=== PATIENT | male | born 1955 | race Caucasian/White ===

== ENCOUNTER 2017-04-13 19:18 | Observation (INO) ==
[2017-04-13 20:25] LABS: Basophils % 0.4 %; Eosinophils # 0.1 K/mcL (0.0-0.6); Eosinophils % 2.7 %; Hematocrit 44.4 % (37.5-50.1); Hemoglobin 13.9 g/dL (12.9-16.9); Immature Granulocytes % 0.4 % (0-4); Lymphocytes # 1.3 K/mcL (0.6-4.6); Lymphocytes % 23.9 %; Mean Corpuscular HGB Conc 31.3 g/dL (31.6-35.5); Mean Corpuscular Hemoglobin 26.8 pg (28.0-33.3); Mean Corpuscular Volume 85.5 fL (83.0-100.0); Monocytes # 0.6 K/mcL (0.0-1.3); Monocytes % 10.6 %; Neutrophils # 3.3 K/mcL (1.6-8.9); Platelet Count 210 K/mcL (140-400); Red Blood Count 5.19 M/mcL (4.19-5.50); Red Cell Distribution Width 13.6 % (11.5-14.5)
[2017-04-13] MEDS ORDERED: Ibuprofen 800 MG TABLET PO ONE (20:32)
[2017-04-13] MEDS ORDERED: Ipratropium/Albuterol Neb 3 ML IH ONE (20:44)
[2017-04-13 20:46] LABS: BUN/Creatinine Ratio 23 (6-26); Blood Urea Nitrogen 22 mg/dL (8-23); Calcium 8.7 mg/dL (8.6-10.3); Carbon Dioxide 27 mEq/L (23-29); Chloride 104 mEq/L (98-107); Glucose 98 mg/dL (70-105); Osmolality,Calculated 285 (280-300); Potassium 4.6 mEq/L (3.5-5.1); Sodium 136 mEq/L (136-145); eGFR For African Americans > 60 (> 60); eGFR For Non-African Americans > 60 (> 60)
[2017-04-13 20:52] LABS: Platelet Estimate Normal (Normal)
[2017-04-13] MEDS ORDERED: methylPREDNISolone 125 MG/2 ML VIAL IVP ONE (20:52)
--- NOTE | 2017-04-13 20:58 | Emergency Department Note ---
Disposition Clinical Impression: Hypoxia, COPD exacerbation, Pulmonary nodule Disposition: Admitted As Inpatient Condition: Good Time of Disposition: 22:36 SOB HPI - General Chief Complaint: ED Shortness of Breath/Dyspnea Stated Complaint: JOVANNI/ cough Time Seen by Provider: 04/13/17 19:22 Source: patient Mode of arrival: ambulatory Limitations: no limitations Nursing Notes Reviewed: Yes Vital Signs Reviewed: Yes - History of Present Illness Patient is a 62-year-old male with past medical history of smoking history. No official diagnosis of COPD. He presents today due to shortness of breath and cough over the past month. He states that his cough has not gotten any worse but has not gotten any better. He feels short of breath when he is up walking around. He does not currently take any daily inhalers. Has never been officially diagnosed with COPD. Does not wear any oxygen at home. He was seen in urgent care and prescribed steroids which he said did not help. He has also tried Tessalon Perles without any relief. Denies any other nausea, vomiting, fevers, diarrhea, abdominal pain. - Related Data Allergies Allergy/AdvReac Type Severity Reaction Status Date / Time latex Allergy Rash Verified 04/13/17 19:22 All systems ED: reviewed and negative except as stated. Constitutional: Denies: fever Cardiovascular: Denies: chest pain Respiratory: Reports: cough, dyspnea Gastrointestinal: Denies: abdominal pain, nausea, vomiting, diarrhea Genitourinary: Denies: urgency, dysuria, frequency, hematuria Past Medical History - Past Medical History Attestation: Yes The following information was validated with the patient. Source: patient Medical history: Reports: no medical history Surgical history: Reports: other Psychiatric history: Reports: no psych history - Social History Smoking Status: Never smoker Smokeless Tobacco Status: No Alcohol use: Reports: none Drug use: Reports: none Physical Exam - General General appearance: alert, in no apparent distress - Head Head exam: atraumatic, normocephalic, normal inspection - Eye Eye exam: Present: normal appearance, PERRL, EOMI - ENT ENT exam: normal exam, normal oropharynx, mucous membranes moist - Neck Neck exam: Present: normal inspection, full ROM, trachea midline - Chest Chest inspection: Present: normal inspection, symmetric chest wall rise - Respiratory Respiratory exam: Present: wheezes (Wheezing and decreased aeration of bilateral lower lobes). Absent: stridor, accessory muscle use, prolonged expiratory phase - Cardiovascular Cardiovascular exam: Present: regular rate, normal rhythm, normal heart sounds - Abdominal Exam Abdominal exam: Present: soft, Non-Tender. Absent: tenderness, distention, guarding, rebound, rigidity - Extremities Exam Extremities exam: Present: normal inspection, full ROM. Absent: tenderness, pedal edema - Neurological Exam Neurological exam: Present: alert, oriented X3 - Psychiatric Psychiatric exam: Present: normal affect, normal mood - Skin Skin exam: Present: warm, dry, intact, normal color Course Course Narrative: Patient mildly hypertensive, oxygen 93% on room air. Otherwise, the rest of the vitals were within normal limits. Physical exam shows wheezing of bilateral lower lobes along with decreased aeration throughout. Abdomen soft and nontender, heart regular rate and rhythm. Chest x-ray shows question of COPD and possible mild bronchitis. CBC, BMP, troponin all within normal limits. EKG showed normal sinus rhythm with no acute ST changes. Due to hypoxia, persistent cough, there is concern for PE. Will perform CTA to assess for PE. 22:34 chest x-ray shows questionable COPD. CTA of the chest shows no PE, there is moderate centrilobular emphysema and a 4 mm nodule in the left upper lobe. This was discussed with the patient and he is aware that he will need follow-up CT imaging. Patient has been dropping down to 88-89% on room air while at rest. I do not feel comfortable with sending the patient home at this time. Likely COPD exacerbation. Patient has been given Solu-Medrol and [address] will place patient on oxygen and admit for further care. Chest X-Ray 04/13/17 19:22 IMPRESSION: Question of COPD. Mildly increased lung markings, may be related to mild bronchitis D/ / Jordon Vazquez MD / Jordon Vazquez MD Interpreting Provider: Jordon Vazquez MD Chest CTA 04/13/17 20:36 IMPRESSION: No evidence of pulmonary embolism or acute pulmonary abnormality. Moderate centrilobular emphysema. 4 mm nodule within the medial aspect of the left upper lobe. RECOMMENDATIONS: Fleischner Society guidelines for follow-up and management of incidentally detected pulmonary nodules: Single Solid Nodule: Nodule size less than 6 mm In a low-risk patient, no routine follow-up. In a high-risk patient, optional CT at 12 months. Nodule size equals 6-8 mm In a low-risk patient, CT at 6-12 months, then consider CT at 18-24 months. In a high-risk patient, CT at 6-12 months, then CT at 18-24 months. Nodule size greater than 8 mm In a low-risk patient, consider CT, PET/CT, or tissue sampling at 3 months. In a high-risk patient, consider CT, PET/CT, or tissue sampling at 3 months. Multiple Solid Nodules: Nodule size less than 6 mm In a low-risk patient, no routine follow-up. In a high-risk patient, optional CT at 12 months. Nodule size equals 6-8 mm In a low-risk patient, CT at 3-6 months, then consider CT at 18-24 months. In a high-risk patient, CT at 3-6 months, then CT at 18-24 months. Nodule size greater than 8 mm In a low-risk patient, CT at 3-6 months, then consider CT at 18-24 months. In a high-risk patient, CT at 3-6 months, then CT at 18-24 months. - Low risk patients include individuals with minimal or absent history of smoking and other known risk factors. - High risk patients include individuals with a history or smoking or known risk factors. Radiology 2017 http://pubs.rsna.org/doi/full/10.1148/radiol.[email or web address] D/ / Rashi Narayan MD / Rashi Narayan MD Interpreting Provider: Rashi Narayan MD Chest X-Ray 04/13/17 19:22 IMPRESSION: Question of COPD. Mildly increased lung markings, may be related to mild bronchitis D/ / Jordon Vazquez MD / Jordon Vazquez MD Interpreting Provider: Jordon Vazquez MD Vital Signs Temperature 97.4 F L 04/13/17 19:19 Pulse Rate 94 04/13/17 19:19 Respiratory Rate 16 04/13/17 19:19 Blood Pressure 142/88 04/13/17 19:19 O2 Sat by Pulse Oximetry 96 04/13/17 19:19 Temperature 97.5 F L 04/14/17 04:23 Pulse Rate 100 04/14/17 04:23 Respiratory Rate 16 04/14/17 04:23 Blood Pressure 123/73 04/14/17 04:23 O2 Sat by Pulse Oximetry 92 04/14/17 04:23 Oxygen Delivery Oxygen Delivery Room Air Shortness of Breath/Dyspnea - MDM Narrative Medical decision making narrative: Patient mildly hypertensive, oxygen 93% on room air. Otherwise, the rest of the vitals were within normal limits. Physical exam shows wheezing of bilateral lower lobes along with decreased aeration throughout. Abdomen soft and nontender, heart regular rate and rhythm. Chest x-ray shows question of COPD and possible mild bronchitis. CBC, BMP, troponin all within normal limits. EKG showed normal sinus rhythm with no acute ST changes. Due to hypoxia, persistent cough, there is concern for PE. Will perform CTA to assess for PE. 22:34 chest x-ray shows questionable COPD. CTA of the chest shows no PE, there is moderate centrilobular emphysema and a 4 mm nodule in the left upper lobe. This was discussed with the patient and he is aware that he will need follow-up CT imaging. Patient has been dropping down to 88-89% on room air while at rest. I do not feel comfortable with sending the patient home at this time. Likely COPD exacerbation. Patient has been given Solu-Medrol and [address] will place patient on oxygen and admit for further care. WIll give levaquin IV. - Medical Records Medical records reviewed: Yes I reviewed the patient's medical records. - Lab Data Lab results reviewed: Yes I reviewed the patient's lab results. Result diagrams: 04/13/17 20:11 04/13/17 20:11 Lab Results 04/13/17 04/13/17 04/13/17 Range/Units 20:11 20:11 20:11 WBC 5.3 (4.3-11.1) K/mcL RBC 5.19 (4.19-5.50) M/mcL Hgb 13.9 (12.9-16.9) g/dL Hct 44.4 (37.5-50.1) % MCV 85.5 (83.0-100.0) fL MCH 26.8 L (28.0-33.3) pg MCHC 31.3 L (31.6-35.5) g/dL RDW 13.6 (11.5-14.5) % Plt Count 210 (140-400) K/mcL MPV 9.0 L (9.4-12.4) fL Immature Gran % 0.4 (0-4) % Seg Neutrophils % 62.0 % Lymphocytes % 23.9 % Monocytes % 10.6 % Eosinophils % 2.7 % Basophils % 0.4 % Neutrophils # 3.3 (1.6-8.9) K/mcL Lymphocytes # 1.3 (0.6-4.6) K/mcL Monocytes # 0.6 (0.0-1.3) K/mcL Eosinophils # 0.1 (0.0-0.6) K/mcL Basophils # 0.0 (0.0-0.2) K/mcL Platelet Estimate Normal (Normal) Sodium 136 (136-145) mEq/L Potassium 4.6 (3.5-5.1) mEq/L Chloride 104 (98-107) mEq/L Carbon Dioxide 27 (23-29) mEq/L BUN 22 (8-23) mg/dL Creatinine 0.96 (0.70-1.30) mg/dL Est GFR ( Amer) > 60 (> 60) Est GFR (Non-Af Amer) > 60 (> 60) BUN/Creatinine Ratio 23 (6-26) Glucose 98 (70-105) mg/dL Calculated Osmolality 285 (280-300) Lactic Acid 0.8 (0.5-2.2) mmol/L Calcium 8.7 (8.6-10.3) mg/dL Troponin I (< 0.04) ng/mL B-Natriuretic Peptide (Less than 100) pg/mL 04/13/17 04/13/17 Range/Units 20:11 20:11 WBC (4.3-11.1) K/mcL RBC (4.19-5.50) M/mcL Hgb (12.9-16.9) g/dL Hct (37.5-50.1) % MCV (83.0-100.0) fL MCH (28.0-33.3) pg MCHC (31.6-35.5) g/dL RDW (11.5-14.5) % Plt Count (140-400) K/mcL MPV (9.4-12.4) fL Immature Gran % (0-4) % Seg Neutrophils % % Lymphocytes % % Monocytes % % Eosinophils % % Basophils % % Neutrophils # (1.6-8.9) K/mcL Lymphocytes # (0.6-4.6) K/mcL Monocytes # (0.0-1.3) K/mcL Eosinophils # (0.0-0.6) K/mcL Basophils # (0.0-0.2) K/mcL Platelet Estimate (Normal) Sodium (136-145) mEq/L Potassium (3.5-5.1) mEq/L Chloride (98-107) mEq/L Carbon Dioxide (23-29) mEq/L BUN (8-23) mg/dL Creatinine (0.70-1.30) mg/dL Est GFR ( Amer) (> 60) Est GFR (Non-Af Amer) (> 60) BUN/Creatinine Ratio (6-26) Glucose (70-105) mg/dL Calculated Osmolality (280-300) Lactic Acid (0.5-2.2) mmol/L Calcium (8.6-10.3) mg/dL Troponin I < 0.03 (< 0.04) ng/mL B-Natriuretic Peptide 13 (Less than 100) pg/mL - Radiology Data Radiology results reviewed: Yes I reviewed the patient's radiology results. - EKG Data EKG attestation: Yes I reviewed and interpreted this EKG. EKG results narrative: 04/13/2017 and 19:25. Normal sinus rhythm. Rate 91. [place] 150. QRS 93. QTC 383. No acute ST elevation or depression. Normal axis. S.B.A.R. - S.B.A.R. Situation: Demographics, MOA Background: Presenting Complaint, Relevant PMH, Meds, & Allergies Assessment: Vital Signs, Course and respsone to treatment, Exam Concerns, Patient/Family Expectation, Pertinant Lab Results, Outstanding Labs Recommendation: Barrier(s) to disposition, Recommendation based on pending studies, treatments, or consults S.B.A.R. Report Given to: Dr. Vickie Rothman Repor Time: 22:36 Attestation Statement - Attestation Attestation: I examined this patient and my medical decision-making was reviewed with the Resident Physician. I agree with the documented findings, disposition and treatment plan as described except to the extent set forth below. Findings consistent with cough. Suspect bronchitis, CT pulmonary embolism study shows no acute findings.
[2017-04-13] MEDS ORDERED: *HR* Promethazine 25 MG/ML VIAL IVP PRN (22:33)
[2017-04-13] MEDS ORDERED: Ondansetron 4 MG/2 ML VIAL IVP PRN (22:33)
[2017-04-13] MEDS ORDERED: *HR* HYDROcodone/Acet 5/325 mg TABLET PO PRN (22:33)
[2017-04-13] MEDS ORDERED: Naloxone 0.4 MG/ML INJ IVP PRN (22:33)
[2017-04-13] MEDS ORDERED: Levofloxacin 750 MG/150 ML 750 MG/150 ML BAG IVPB ONE (22:37)
[2017-04-13] MEDS: Ipratropium/Albuterol Neb 3 ML IH SCH (23:35)
--- NOTE | 2017-04-13 23:53 | Internal Med History&Physical ---
Date of Encounter: 04/13/17 Time of Encounter: 23:30 Assessment and Plan (1) COPD exacerbation Current visit: Yes Status: Acute Admit the pt into Med Surg Triggered by occupational chemical exposure + Bronchitis Started him on high dose IV steroids Cont JESSICA Duoneb + O2 cont INH steroids too On Empirical abx Levaquin check Resp viral panel Reviewed CXR - No infiltrates..emphesmatous changes noticed Recommend to f/u with Pulm Also counseled to change the occupation (2) Acute bronchitis Current visit: Yes Status: Acute mostly viral however due to chronicity and severity of symptoms started him on Levaquin abx Qualifiers: Qualified Code(s): J20.9 - Acute bronchitis, unspecified (3) Pulmonary nodule, left Current visit: Yes Status: Acute 4mm Left upper lobe nodule need out pt f/u pt does aware of it (4) Hypoxia Current visit: Yes Status: Acute due to COPD exacerbation Acute resp distress need home O2 eval, Internal Medicine - H&P: HPI Chief complaint: Shortness of breath Admitted From: Emergency Dept Plans for Post Hospital Care: Home History of present illness: Mr. 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 cough with yellowish expectoration. Pt stated he has been having SOB from one month, especially form last 2 weeks it is getting worse. He happened to seen at an [facility] and PCP, who put him on ABx and Symbicort. However his symptoms have not improved. After coming to the ER pt was severely dyspneic , Spo2 88% on RA. After receiving IV steroids + Duoneb now he is feeling better. Denied any PND / Orthopena / Pedal edema Past Med Surg Social Fam HX - Past Medical History Medical history: no medical history Psychiatric history: no psych history - Past Surgical History Surgical History: other - Social History Smoking Status: Never smoker Smokeless Tobacco Status: No Alcohol use: none Drug use: none - Family History Mother Living Status: Still Living Hx Family Cardiac Disorders: Yes (HTN) Hx Family Cancer: Yes (skin cancer) Hx Family Genitourinary Disorders: Yes Father Living Status: Age at : 87 Cause of : PN Hx Family Cardiac Disorders: Yes (open heart surgery, stents) Hx Family Respiratory Disorders: Yes (PN) Hx Family Endocrine Disorder: Yes (DM2) Internal Medicine - H&P: Meds 3 Allergy/AdvReac Type Severity Reaction Status Date / Time latex Allergy Rash Verified 04/13/17 19:22 All Systems PM: A 10-system review of systems was performed and is negative for pertinent findings except as documented above in the HPI. Review of systems: Reviewed all the systems, everything is benign except the systems and symptoms I mentioned in HPI - Constitutional Vitals: Temp Pulse Resp BP Pulse Ox 97.5 F L 93 17 124/74 90 04/13/17 23:23 04/13/17 23:23 04/13/17 23:23 04/13/17 23:23 04/13/17 23:23 General appearance: Present: mild distress, A&O X 3, answers questions appropriately - Head Head exam: Present: atraumatic, normal inspection - Neck Neck exam general surgery: Present: supple - Respiratory Respiratory exam: Present: decreased breath sounds, respiratory distress (mild) , wheezes (diffuse , severe). Absent: rales, rhonchi - Cardiovascular Cardiovascular exam: Present: RRR, +S1, +S2. Absent: systolic murmur, tachycardia - GI/Abdominal GI/Abdominal exam: Present: normal bowel sounds, soft. Absent: rebound, rigid, tenderness - Extremities Exam Extremities exam: Absent: calf tenderness, pedal edema, tenderness - Back Exam Back exam: Absent: CVA tenderness (L), CVA tenderness (R) - Neurological Exam Neurological exam: Present: alert, oriented X3 - Psychiatric Psychiatric exam: Present: normal affect, normal mood - Skin Skin exam: Absent: rash Internal Med - H&P Results - Labs CBC & Chem 7: 04/13/17 20:11 04/13/17 20:11
[2017-04-14 01:21] LABS: Adenovirus Not Detected (Not Detect); Bordetella Pertussis Not Detected (Not Detect); Chlamydophila pneumoniae Not Detected (Not Detect); Coronavirus 229E Not Detected (Not Detect); Coronavirus HKU1 Not Detected (Not Detect); Coronavirus NL63 Not Detected (Not Detect); Coronavirus OC43 Not Detected (Not Detect); Human Metapneumovirus Not Detected (Not Detect); Human Rhinovirus/Enterovirus Not Detected (Not Detect); Influenza A Subtype 2009 H1 Not Detected (Not Detect); Influenza A Untypeable Not Detected (Not Detect); Influenza B ***DETECTED*** (Not Detect); Mycoplasma pneumoniae Not Detected (Not Detect); Parainfluenza Virus 1 Not Detected (Not Detect); Parainfluenza Virus 2 Not Detected (Not Detect); Parainfluenza Virus 3 Not Detected (Not Detect); Parainfluenza Virus 4 Not Detected (Not Detect); Respiratory Syncytial Virus Not Detected (Not Detect)
[2017-04-14] MEDS ORDERED: MethylPREDNISolone 40 MG/ML VIAL IVP SCH (03:00)
[2017-04-14] MEDS ORDERED: Ibuprofen 600 MG TABLET PO ONE (03:46)
[2017-04-14] MEDS: Ipratropium/Albuterol Neb 3 ML IH SCH ×5 (03:51→20:36)
[2017-04-14 06:33] LABS: Basophils % 0.3 %; Hematocrit 39.9 % (37.5-50.1); Hemoglobin 12.8 g/dL (12.9-16.9); Immature Granulocytes % 0.3 % (0-4); Lymphocytes # 0.3 K/mcL (0.6-4.6); Lymphocytes % 8.7 %; Mean Corpuscular HGB Conc 32.1 g/dL (31.6-35.5); Mean Corpuscular Hemoglobin 26.9 pg (28.0-33.3); Mean Platelet Volume 8.7 fL (9.4-12.4); Monocytes # 0.1 K/mcL (0.0-1.3); Monocytes % 2.2 %; Neutrophils # 3.2 K/mcL (1.6-8.9); Platelet Count 190 K/mcL (140-400); Red Blood Count 4.75 M/mcL (4.19-5.50); Red Cell Distribution Width 13.6 % (11.5-14.5); Segmented Neutrophils % 88.5 %
[2017-04-14] MEDS: *HR* Enoxaparin 40 MG/0.4 ML SYRINGE SQ SCH (06:41)
[2017-04-14 08:16] LABS: Platelet Estimate Normal (Normal); Toxic Granulation Present (Not Present)
[2017-04-14] MEDS: MethylPREDNISolone 40 MG/ML VIAL IVP SCH ×2 (08:19→20:43)
[2017-04-14] MEDS ORDERED: Nicotine 21 MG PATCH.TD24 TD SCH (09:00)
--- NOTE | 2017-04-14 12:35 | Internal Med Progress Note ---
Date of Encounter: 04/14/17 Time of Encounter: 12:33 - Assessment and plan (1) Hypoxia Current Visit: Yes Status: Acute Assessment and plan: secondary to COPD exacerbation and influenza continue systemic steroids (Methyprednisolone 40mg IV q12h), bronchodilator support, IV abx, antivirals O2 supplementation as needed will closely monitor respiratory status (2) COPD exacerbation Current Visit: Yes Status: Acute Assessment and plan: as listed above (3) Influenza Current Visit: Yes Status: Acute Assessment and plan: as listed above (4) Acute bronchitis Current Visit: Yes Status: Acute Assessment and plan: as listed above guaifenesin as needed for cough Qualifiers: Qualified Code(s): J20.9 - Acute bronchitis, unspecified (5) Pulmonary nodule, left Current Visit: Yes Status: Acute Assessment and plan: pt aware outpatient follow up with pulmonary (6) DVT prophylaxis Current Visit: Yes Status: Acute Assessment and plan: Heparin SQ - Subjective Interval history: Patient seen and examined at bedside. Resting in bed and reports of feeling better compared to previous day. Currently saturating well on room air - Constitutional Vitals: Temp Pulse Resp BP Pulse Ox 97.7 F 103 14 131/82 93 04/14/17 12:06 04/14/17 12:06 04/14/17 12:06 04/14/17 12:06 04/14/17 12:06 General appearance: Present: cooperative, A&O X 3, pleasant, no acute distress, answers questions appropriately - Head Head exam: Present: atraumatic, normocephalic - Eye Eye exam: Present: conjuntiva pink, sclera anicteric - Respiratory Respiratory exam: Absent: respiratory distress, wheezes (decreased breath sounds , equal air entry bilaterally ) - Cardiovascular Cardiovascular exam: Present: RRR, +S1, +S2. Absent: diastolic murmur, gallop, rubs, systolic murmur - GI/Abdominal GI/Abdominal exam: Present: normal bowel sounds, soft, no peritoneal signs. Absent: distended, tenderness - Extremities Exam Extremities exam: Present: warm, radial pulses palpable and symmetrical. Absent : calf tenderness, cyanotic, pedal edema - Neurological Exam Neurological exam: Present: alert, oriented X3 - Psychiatric Psychiatric exam: Present: normal affect, normal mood Internal Medicine: Result - Labs CBC & Chem 7: 04/14/17 06:22 04/13/17 20:11 Labs: Short CBC 04/14/17 Range/Units 06:22 WBC 3.6 L (4.3-11.1) K/mcL Hgb 12.8 L (12.9-16.9) g/dL Hct 39.9 (37.5-50.1) % Plt Count 190 (140-400) K/mcL Neutrophils # 3.2 (1.6-8.9) K/mcL Consult Discharge Plan - Plan Referrals: Kaiden Wahl DO [Primary Care Provider] -
[2017-04-14] MEDS ORDERED: GuaiFENesin Liq 200 MG/10 ML UDC PO PRN (12:39)
[2017-04-14] MEDS: Acetaminophen 325 MG TABLET PO PRN ×2 (16:29→23:44)
--- NOTE | 2017-04-14 17:44 | Electrocardiograph Report ---
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
[2017-04-14] MEDS ORDERED: POTASSIUM CITRATE 15 MEQ PO SCH (21:00)
[2017-04-14] MEDS: Levofloxacin 500 MG/100 ML 500 MG/100 ML BAG IVPB SCH (23:06)
[2017-04-15] MEDS: POTASSIUM CITRATE 15 MEQ PO SCH ×3 (00:06→20:49)
[2017-04-15] MEDS: Ipratropium/Albuterol Neb 3 ML IH SCH ×7 (00:11→23:13)
[2017-04-15] MEDS: *HR* Enoxaparin 40 MG/0.4 ML SYRINGE SQ SCH (04:56)
[2017-04-15 06:39] LABS: Basophils % 0.1 %; Hematocrit 38.6 % (37.5-50.1); Hemoglobin 12.6 g/dL (12.9-16.9); Immature Granulocytes % 0.4 % (0-4); Lymphocytes # 0.8 K/mcL (0.6-4.6); Lymphocytes % 6.1 %; Mean Corpuscular HGB Conc 32.6 g/dL (31.6-35.5); Mean Corpuscular Hemoglobin 27.1 pg (28.0-33.3); Mean Platelet Volume 9.1 fL (9.4-12.4); Monocytes # 0.8 K/mcL (0.0-1.3); Monocytes % 5.7 %; Platelet Count 247 K/mcL (140-400); Red Blood Count 4.65 M/mcL (4.19-5.50); Red Cell Distribution Width 13.9 % (11.5-14.5); Segmented Neutrophils % 87.7 %
[2017-04-15 06:41] LABS: Neutrophils # 11.8 K/mcL (1.6-8.9)
[2017-04-15 06:47] LABS: BUN/Creatinine Ratio 22 (6-26); Blood Urea Nitrogen 17 mg/dL (8-23); Calcium 8.6 mg/dL (8.6-10.3); Carbon Dioxide 22 mEq/L (23-29); Chloride 106 mEq/L (98-107); Glucose 178 mg/dL (70-105); Magnesium 1.9 mg/dL (1.6-2.6); Osmolality,Calculated 288 (280-300); Phosphorous 2.9 mg/dL (2.7-4.5); Potassium 3.7 mEq/L (3.5-5.1); Sodium 136 mEq/L (136-145); eGFR For African Americans > 60 (> 60); eGFR For Non-African Americans > 60 (> 60)
[2017-04-15] MEDS: predniSONE 20 MG TABLET PO SCH ×2 (08:51)
--- NOTE | 2017-04-15 10:33 | Internal Med Progress Note ---
Date of Encounter: 04/15/17 Time of Encounter: 10:05 - Assessment and plan (1) Hypoxia Current Visit: Yes Status: Acute Assessment and plan: secondary to COPD exacerbation and influenza continue systemic steroids (d/c Methyprednisolone 40mg IV q12h and start Prednisone 40mg PO Qdaily), bronchodilator support, IV abx, antivirals (day 2) O2 supplementation as needed will closely monitor respiratory status (2) COPD exacerbation Current Visit: Yes Status: Acute Assessment and plan: as listed above (3) Influenza Current Visit: Yes Status: Acute Assessment and plan: as listed above (4) Acute bronchitis Current Visit: Yes Status: Acute Assessment and plan: as listed above guaifenesin as needed for cough Qualifiers: Bronchitis organism: unspecified organism Qualified Code(s): J20.9 - Acute bronchitis, unspecified (5) Pulmonary nodule, left Current Visit: Yes Status: Chronic Assessment and plan: pt aware outpatient follow up with pulmonary (6) DVT prophylaxis Current Visit: Yes Status: Acute Assessment and plan: Heparin SQ - Subjective Interval history: Patient seen and examined at bedside. Resting in bed and reports of feeling better compared to previous day. Currently saturating 90-92% on room air, will perform six minute walk test to see if patient needs home oxygen. Started Prednisone today, d/c solumedrol will continue to closely monitor and tentative d/c in am if remains clinically stable - Constitutional Vitals: Temp Pulse Resp BP Pulse Ox 97.9 F 97 18 137/82 92 04/15/17 06:44 04/15/17 06:44 04/15/17 08:30 04/15/17 06:44 04/15/17 08:30 General appearance: Present: cooperative, A&O X 3, pleasant, no acute distress, answers questions appropriately - Head Head exam: Present: atraumatic, normocephalic - Eye Eye exam: Present: conjuntiva pink, sclera anicteric - Respiratory Respiratory exam: Absent: respiratory distress, wheezes (equal air entry bilaterally ) - Cardiovascular Cardiovascular exam: Present: RRR, +S1, +S2. Absent: diastolic murmur, gallop, rubs, systolic murmur - GI/Abdominal GI/Abdominal exam: Present: normal bowel sounds, soft, no peritoneal signs. Absent: distended, tenderness - Extremities Exam Extremities exam: Present: warm, radial pulses palpable and symmetrical. Absent : calf tenderness, cyanotic, pedal edema - Neurological Exam Neurological exam: Present: alert, oriented X3 - Psychiatric Psychiatric exam: Present: normal affect, normal mood Internal Medicine: Result - Labs CBC & Chem 7: 04/15/17 06:04 04/15/17 06:04 Labs: Short CBC 04/15/17 Range/Units 06:04 WBC 13.4 H D (4.3-11.1) K/mcL Hgb 12.6 L (12.9-16.9) g/dL Hct 38.6 (37.5-50.1) % Plt Count 247 (140-400) K/mcL Neutrophils # 11.8 H (1.6-8.9) K/mcL BMP 04/15/17 06:04 Sodium 136 Potassium 3.7 Chloride 106 Carbon Dioxide 22 L BUN 17 Creatinine 0.76 Glucose 178 H Calcium 8.6 Consult Discharge Plan - Plan Referrals: Kaiden Wahl DO [Primary Care Provider] -
[2017-04-15] MEDS: Saline Nasal Spray 44 ML BOTTLE NS PRN ×2 (20:52→23:24)
[2017-04-15] MEDS: Levofloxacin 500 MG/100 ML 500 MG/100 ML BAG IVPB SCH (23:17)
[2017-04-16] MEDS: Ipratropium/Albuterol Neb 3 ML IH SCH ×4 (04:00→15:47)
[2017-04-16 05:47] LABS: Basophils % 0.3 %; Hematocrit 38.2 % (37.5-50.1); Hemoglobin 12.4 g/dL (12.9-16.9); Immature Granulocytes % 1.4 % (0-4); Lymphocytes # 1.7 K/mcL (0.6-4.6); Lymphocytes % 11.9 %; Mean Corpuscular HGB Conc 32.5 g/dL (31.6-35.5); Monocytes # 1.2 K/mcL (0.0-1.3); Monocytes % 8.4 %; Neutrophils # 10.9 K/mcL (1.6-8.9); Platelet Count 284 K/mcL (140-400); Red Cell Distribution Width 14.1 % (11.5-14.5)
[2017-04-16 06:09] LABS: BUN/Creatinine Ratio 29 (6-26); Blood Urea Nitrogen 22 mg/dL (8-23); Calcium 8.7 mg/dL (8.6-10.3); Carbon Dioxide 24 mEq/L (23-29); Chloride 107 mEq/L (98-107); Glucose 115 mg/dL (70-105); Osmolality,Calculated 288 (280-300); Phosphorous 2.7 mg/dL (2.7-4.5); Potassium 3.8 mEq/L (3.5-5.1); Sodium 137 mEq/L (136-145); eGFR For African Americans > 60 (> 60); eGFR For Non-African Americans > 60 (> 60)
[2017-04-16] MEDS: *HR* Enoxaparin 40 MG/0.4 ML SYRINGE SQ SCH (06:15)
[2017-04-16] MEDS: POTASSIUM CITRATE 15 MEQ PO SCH (07:57)
[2017-04-16] MEDS: predniSONE 20 MG TABLET PO SCH (07:57)
--- NOTE | 2017-04-16 09:51 | Internal Med Progress Note ---
Date of Encounter: 04/16/17 Time of Encounter: 09:00 - Constitutional Vitals: Temp Pulse Resp BP Pulse Ox 97.4 F L 85 18 145/89 92 04/16/17 07:15 04/16/17 07:15 04/16/17 07:30 04/16/17 07:15 04/16/17 07:30 General appearance: Present: cooperative, A&O X 3, pleasant, no acute distress, answers questions appropriately Internal Medicine: Result - Labs CBC & Chem 7: 04/16/17 05:00 04/16/17 05:00 Labs: Short CBC 04/16/17 Range/Units 05:00 WBC 14.0 H (4.3-11.1) K/mcL Hgb 12.4 L (12.9-16.9) g/dL Hct 38.2 (37.5-50.1) % Plt Count 284 (140-400) K/mcL Neutrophils # 10.9 H (1.6-8.9) K/mcL BMP 04/16/17 05:00 Sodium 137 Potassium 3.8 Chloride 107 Carbon Dioxide 24 BUN 22 Creatinine 0.75 Glucose 115 H Calcium 8.7 Consult Discharge Plan - Plan Referrals: Kaiden Wahl DO [Primary Care Provider] -
--- NOTE | 2017-04-16 09:54 | Discharge Summary ---
Date of Encounter: 04/16/17 Time of Encounter: 09:52 - Discharge Diagnosis (1) Influenza Priority: Primary Status: Acute Comments: presented to ER with cough and shortness of breath for 1 month. CXR with evidence of COPD and mild bronchitis, otherwise non-acute. Resp PCR positive for influenza B. Sx' improved at time of discharge. Cont Tamiflu (to complete 5 day course) (2) COPD exacerbation Priority: Primary Status: Acute Comments: current smoker. Presented with SOB for one month. Chest CTA negative for pulmonary embolism. CXR with bronchitis. Adequately oxygenating on room air, did not qualify for home oxygen. Sx's improved with Levaquin, steroids and breathing treatments. Discharge home on Levaquin, steroid burst. Smoking cessation advised. (3) Leukocytosis Priority: Primary Status: Acute Comments: WBC 14K. likely secondary to steroids. Lactic acid normal, no tachycardia or hypotension. Recommend repeat CBC within 1 week with PCP Qualifiers: Leukocytosis type: unspecified Qualified Code(s): D72.829 - Elevated white blood cell count, unspecified - Discharge Medications Prescriptions: levoFLOXacin [Levaquin] 750 mg PO DAILY #4 tablet Oseltamivir [Tamiflu] 75 mg PO BID #6 capsule predniSONE [PredniSONE] 40 mg PO DAILY #8 tablet Home Medications: Atropine Sulfate in 0.9% NaCl [Atropine 0.01%-Ns Eye Drops] 1 drop RIGHT EYE DAILY 04/14/17 [History] Benzonatate 100 mg PO TID 04/14/17 [History] Potassium Citrate [Urocit-K] 15 meq PO BID 04/14/17 [History] Oseltamivir [Tamiflu] 75 mg PO BID #6 capsule 04/16/17 [Rx] levoFLOXacin [Levaquin] 750 mg PO DAILY #4 tablet 04/16/17 [Rx] predniSONE [PredniSONE] 40 mg PO DAILY #8 tablet 04/16/17 [Rx] Allergies/Adverse Reactions: 3 Allergy/AdvReac Type Severity Reaction Status Date / Time latex Allergy Rash Verified 04/13/17 19:22 Date of admission: 04/13/17 22:47 Primary care physician: Kaiden Carbajal Consults: 04/13/17 23:59 Consult to Music Supervisor [CONS] Routine Reason for SW Consult: Advance Directive, POA, financial concerns Discharging clinician: Jaja Singh Anticipated date of discharge: 04/16/17 - Patient Status Disposition: Home, Self-Care Condition: Good Functional capacity at discharge: independent ambulation Overall status at discharge: patient is progressing back to baseline - Discharge Instructions Instructions: Prednisone (By mouth), Levofloxacin (By mouth), Chronic Obstructive Pulmonary Disease (DC) Follow Up With: Kaiden Wahl DO [Primary Care Provider] - 04/22/17 11:30 am (Please follow up as schedule...) - Diet and Activity Activity: increase activity as tolerated Diet: advance to your usual diet Interval History: Seen and examined at bedside. Patient is new to me, information obtained from chart review and patient report. Patient says he feels better would like to go home today area and shortness of breath significantly improved. No chest pain. No cough. Hospital course: See assessment and plan for hospital course - Time Spent with Patient Total time spent providing and/or coordinating discharge services: - Constitutional Vitals: Temp Pulse Resp BP Pulse Ox 97.4 F L 85 18 145/89 92 04/16/17 07:15 04/16/17 07:15 04/16/17 07:30 04/16/17 07:15 04/16/17 07:30 General appearance: Present: cooperative, A&O X 3, pleasant, no acute distress, answers questions appropriately - Head Head exam: Present: atraumatic, normocephalic - Eye Eye exam: Present: PERRL, conjuntiva pink, sclera anicteric Pupils: Present: PERRL - Neck Neck exam general surgery: Present: supple, trachea midline. Absent: lymphadenopathy - Respiratory Respiratory exam: Present: CTAB. Absent: accessory muscle use, rales, rhonchi, wheezes - Cardiovascular Cardiovascular exam: Present: RRR, +S1, +S2. Absent: diastolic murmur, gallop, rubs, systolic murmur - GI/Abdominal GI/Abdominal exam: Present: normal bowel sounds, soft, no peritoneal signs. Absent: distended, tenderness - Extremities Exam Extremities exam: Present: warm, radial pulses palpable and symmetrical. Absent : calf tenderness, cyanotic, pedal edema - Neurological Exam Neurological exam: Present: CN II-XII intact, oriented X3, no focal deficits. Absent: pronater drift, facial droop, speech deficit - Skin Skin exam: Present: dry, intact
[2017-04-16 12:31] VITALS: BP 136/83
== END 2017-04-16 18:10 | disposition home or self-care (01) ==
LOC: EMEROO 19:18 → INTOOBSV 22:47 → 2ANU 22:47
PROVIDERS: ADMIT Family Medicine; ATTEND Internal Medicine

== ENCOUNTER 2017-04-17 06:26 | Inpatient (IN) ==
[2017-04-17] MEDS ORDERED: Ipratropium/Albuterol Neb 3 ML IH ONE ×3 (06:32→11:44)
--- NOTE | 2017-04-17 07:47 | Emergency Department Note ---
Disposition Clinical Impression: COPD exacerbation, Acute exacerbation of chronic obstructive airways disease Disposition: Home, Self-Care Condition: Good Instructions: Chronic Obstructive Pulmonary Disease (ED) Reasons to Return/Additional Instructions: Rest, increase fluids, follow up with your family doctor in 1-2 days. TAKE 60 MG OF PREDNISONE DAILY - instead of 40mg. Start this new dose tomorrow. Return for pain, trouble breathing, Fever >101.5 despite medications to lower the fever, for any other concerns or if worse in any way. Prescriptions: Albuterol Sulfate [Albuterol Inhaler] 2 puff IH Q4HR PRN #1 hfa.aer.ad PRN Reason: Shortness Of Breath Guaifenesin [Mucinex] 1,200 mg PO BID #20 tab.er.12h PredniSONE [Deltasone] 20 mg PO DAILY 4 Days tablet Referrals: Kaiden Wahl DO [Primary Care Provider] - Forms: ED Satisfaction Letter, Work/School Release SOB HPI - General Chief Complaint: ED Shortness of Breath/Dyspnea Stated Complaint: wheezing Time Seen by Provider: 04/17/17 06:31 Source: patient, family Mode of arrival: private vehicle Limitations: no limitations Nursing Notes Reviewed: Yes Vital Signs Reviewed: Yes - History of Present Illness Pt Subjective Complaint: shortness of breath Onset (ago): hour(s) Context: recent illness (Influenza and newly diagnosed with COPD - admited Friday, discharged yesterday. No O2 or nebs / inhalers given upon d/c.) Severity: moderate Consistency/Duration: constant, gradually worsening Improves with: oxygen, bronchodilators, upright position Worsens with: lying flat ("Maybe a little" per patient), coughing Known history of: COPD (Newly diagnosed - this week), other (Influenza) Associated symptoms: Reports: chest pain ("Tight"), cough, wheezing, sputum production. Denies: pain with inspiration, fever, lower extremity pain, polyuria, polydipsia, parasthesias, palpitations, hemoptysis, diaphoresis, nausea/vomiting, syncope, abdominal pain, sense of impending doom Treatment prior to arrival: none (Was not given any inhalers when d/c'd. Did not qualify for O2 upon d/c. ) Cough present: Yes Cough Description: Voluntary, Involuntary, Non-Productive, Productive, Bronchospastic, Loose Cough Frequency: Intermittent Sputum production: Yes Sputum Amount: Scant Sputum Color: Yellow - Related Data Home oxygen amount: none Home Medications Medication Instructions Recorded Confirmed Atropine Sulfate in 0.9% NaCl 1 drop RIGHT EYE DAILY 04/14/17 04/17/17 [Atropine 0.01%-Ns Eye Drops] Potassium Citrate [Urocit-K] 15 meq PO BID 04/14/17 04/17/17 Benzonatate [Tessalon] 100 mg PO TID PRN 04/17/17 04/17/17 Levofloxacin [Levaquin] 750 mg PO DAILY 04/17/17 04/17/17 Oseltamivir [Tamiflu] 75 mg PO BID 04/17/17 04/17/17 Previous Rx's Medication Instructions Recorded Albuterol Sulfate [Albuterol 2 puff IH Q4HR PRN #1 hfa.aer.ad 04/17/17 Inhaler] Guaifenesin [Mucinex] 1,200 mg PO BID #20 tab.er.12h 04/17/17 PredniSONE [Deltasone] 20 mg PO DAILY 4 Days tablet 04/17/17 Allergies Allergy/AdvReac Type Severity Reaction Status Date / Time latex Allergy Rash Verified 04/17/17 06:30 All systems ED: reviewed and negative except as stated. Review of Systems: As Per HPI Constitutional: Denies: fever, chills, weakness, weight change, night sweats Cardiovascular: Reports: as per HPI, chest pain, dyspnea on exertion. Denies: palpitations, edema, syncope Respiratory: Reports: as per HPI, cough, dyspnea, wheezes, sputum production. Denies: hemoptysis, stridor Gastrointestinal: Reports: as per HPI. Denies: abdominal pain, nausea, vomiting , diarrhea Genitourinary: Denies: frequency Musculoskeletal: Denies: back pain, neck pain, joint swelling, arthralgia Integumentary: Denies: rash Neurological: Denies: headache, weakness, numbness, paresthesias, confusion, vertigo Hematological/Lymphatic: Denies: easy bleeding, easy bruising Past Medical History - Past Medical History Attestation: Yes The following information was validated with the patient. Source: patient Medical history: Reports: COPD Surgical history: Reports: other Psychiatric history: Reports: no psych history - Social History Smoking Status: Never smoker Smokeless Tobacco Status: No Alcohol use: Reports: none Drug use: Reports: none Physical Exam - General Limitations: no limitations General appearance: alert, in no apparent distress - Head Head exam: atraumatic, normocephalic, normal inspection - Eye Eye exam: Present: normal appearance, PERRL. Absent: scleral icterus, conjunctival injection, periorbital swelling - ENT ENT exam: mucous membranes moist - Neck Neck exam: Present: normal inspection, full ROM, trachea midline. Absent: tenderness, meningismus, lymphadenopathy - Chest Chest inspection: Present: normal inspection, symmetric chest wall rise - Respiratory Respiratory exam: Present: wheezes. Absent: respiratory distress, stridor, accessory muscle use, prolonged expiratory phase - Expanded Respiratory Exam Location: wheezes: Left, Right, Upper, Lower (posterior) - Cardiovascular Cardiovascular exam: Present: regular rate (repeat rate 93), normal rhythm, normal heart sounds - Abdominal Exam Abdominal exam: Present: soft, Non-Tender. Absent: distention, mass, pulsatile mass - Extremities Exam Extremities exam: Present: normal inspection, full ROM, normal capillary refill. Absent: tenderness, pedal edema, calf tenderness - Back Exam Back exam: Present: normal inspection, full ROM. Absent: tenderness - Neurological Exam Neurological exam: Present: alert, oriented X3, CN II-XII intact, normal gait - Psychiatric Psychiatric exam: Present: normal affect, normal mood - Skin Skin exam: Present: warm, dry, intact, normal color Course Course Narrative: Patient presents from home with for evaluation of trouble breathing. He states that he was just discharged from here yesterday. He was admitted on Friday for flu and dyspnea. He states that he was diagnosed with COPD while inpatient. He does not recall having PFT's done, but states, "they made me walk around for 6 minutes then said that I didn't need oxygen." He was discharged with Rx for Tamiflu, Levaquin and Prednisone. He started feeling short of breath around 5am. It became progressively worse so his convinced him to come to the ER. Upon arrival he was anxious, tense, tachypneic and hypoxic. Breath sounds decreased anteriorly and lower posteriorly with insp and exp wheezes bilaterally posterior upper and lower. No retractions, occasional congested sounding cough. Nebs, EKG, CXR and TNI ordered. Will also give a higher dose of Prednisone. (He has not taken his 40mg dose today). EKG shows normal sinus rhythm. TNI is <0.03. CXR shows COPD, no pneumonia, per radiologist. O2 sat increased from 87 to 95 on 6 liters. Oxygen decreased to 2 liters. Sats stable at 90%. Patient received 3 duonebs. He is feeling better but is still diminished. Wheezing improved some. Discussed the option of going home with Rx for nebulizer + meds and inhaler. Patient ok, but not in agreement. Consulted with PCP. Admission recommended. Hospitalist paged. Patient accepted for admission. Vital Signs Temperature 97.6 F 04/17/17 06:26 Pulse Rate 104 04/17/17 06:26 Respiratory Rate 22 04/17/17 06:26 Blood Pressure 119/81 04/17/17 06:26 O2 Sat by Pulse Oximetry 89 04/17/17 06:26 Temperature 97.6 F 04/17/17 06:26 Pulse Rate 98 04/17/17 10:00 Respiratory Rate 18 04/17/17 10:00 Blood Pressure 122/88 04/17/17 10:00 O2 Sat by Pulse Oximetry 93 04/17/17 10:00 Oxygen Delivery Oxygen Delivery Nasal Cannula Shortness of Breath/Dyspnea - Medical Records Medical records reviewed: Yes I reviewed the patient's medical records. - Lab Data Lab results reviewed: Yes I reviewed the patient's lab results. Lab results narrative: Laboratory Last Values Troponin I < 0.03 ng/mL (< 0.04) 04/17/17 06:47 Lab Results 04/17/17 Range/Units 06:47 Troponin I < 0.03 (< 0.04) ng/mL - Radiology Data Radiology results reviewed: Yes I reviewed the patient's radiology results. Chest X-Ray 04/17/17 06:39 IMPRESSION: COPD with no acute pneumonia. Subtle posterior costophrenic angle blunting identified on today's exam is essentially stable compared to the prior chest radiograph and may represent chronic changes related to COPD. D/ / 04/17/2017 07:50:38 Russ Salvador MD / [facility] Interpreting Provider: Russ Salvador MD - EKG Data EKG attestation: Yes I reviewed and interpreted this EKG. EKG shows normal: Reports: sinus rhythm Rate: Reports: normal Rhythm: Reports: NSR [place]uddy/QRS: Reports: normal When compared to previous EKG there are: changes noted (now T waves are upright in anterior and lateral leads) Interpretation: Reports: nonspecific ST-T wave changes
[2017-04-17] MEDS ORDERED: predniSONE 20 MG TABLET PO ONE (08:06)
--- NOTE | 2017-04-17 12:27 | Electrocardiograph Report ---
[facility] [employer] Test Date: 2017-04-17 Pat Name: Rashi Wesley Department: 102 Room: Gender: M [employer] Designer: Amanda : 1955 Requested By: Malgorzata Beth Order Number: [id number] Reading MD: Zak Rosado MD Measurements Intervals [place] Rate: 92 P: 78 MT: 140 QRS: 64 QRSD: 105 T: 70 QT: 332 QTc: 382 Interpretive Statements SINUS RHYTHM Electronically Signed On 04-17-2017 12:25:50 EST by Zak Rosado MD
--- NOTE | 2017-04-17 15:13 | Internal Med History&Physical ---
Date of Encounter: 04/17/17 Time of Encounter: 13:00 Assessment and Plan (1) Acute respiratory failure with hypoxia Current visit: Yes Status: Acute His oxygen saturation was 87% at home by EMS at rest. In the emergency department was as low as 88% with supplemental oxygen. He was tachypneic up to 24 respirations per minute. He appears symptomatic and has conversational dyspnea. We will treat with supplemental oxygen by nasal cannula. We will check home oxygen qualification prior to discharge. (2) Influenza B Current visit: Yes Status: Acute Continue with Tamiflu. (3) COPD exacerbation Current visit: Yes Status: Acute Does not have a formal diagnosis of COPD. He will need referral to pulmonology once his acute symptoms have resolved. Clinically has wheezes and prolonged expiratory phase consistent with COPD exacerbation. We will treat him with IV steroids, inhaled bronchodilators, supplemental oxygen, oral Levaquin. Per medical record review during his previous admission he received DVT prophylaxis with Lovenox and therefore a PE is extremely unlikely. If his symptoms do not improve with COPD treatment will consider repeat CT angiogram to rule out PE. During the previous admission he had a negative CTA. (4) DVT prophylaxis Current visit: No Status: Acute Subcutaneous Lovenox Internal Medicine - H&P: HPI Chief complaint: Shortness of breath Admitted From: Emergency Dept Plans for Post Hospital Care: Home History of present illness: Mr. Wesley is a 62 year old male with reported history of COPD who presented to the hospital for shortness of breath. He was admitted to our service and discharged yesterday after being treated for COPD exacerbation and influenza B. Since arriving home he has felt progressively more short of breath, he was severely short of breath this morning, worse with ambulating to the bathroom, better with rest, reports associated cough productive of green sputum, denies associated chest pain, denies fever. At the time he was picked up by EMS this morning his oxygen saturation was 87% on room air. He does not have home oxygen. In the emergency department oxygen saturation was 88% with supplemental oxygen by nasal cannula at 2 L/m. He required multiple breathing treatments which improved his symptoms but remained severely symptomatic and therefore was referred for admission. A 10 point review of systems was negative except as above. Family history was reviewed and found to be noncontributory. Social history: Former smoker, quit 10 years ago, denies alcohol and drug use. Works in a [employer] plant and uses a mask at work but says sometimes he uses mask for 3 or 4 days. Past Med Surg Social Fam HX - Past Medical History Medical history: COPD Psychiatric history: no psych history - Past Surgical History Surgical History: other - Social History Smoking Status: Former smoker Smokeless Tobacco Status: No Alcohol use: none Drug use: none - Family History Mother Living Status: Still Living Hx Family Cardiac Disorders: Yes (HTN) Hx Family Cancer: Yes (skin cancer) Father Living Status: Hx Family Cardiac Disorders: Yes (open heart surgery, stents) Hx Family Respiratory Disorders: Yes (PN) Hx Family Endocrine Disorder: Yes (DM2) Internal Medicine - H&P: Meds Atropine Sulfate in 0.9% NaCl [Atropine 0.01%-Ns Eye Drops] 1 drop RIGHT EYE DAILY 04/14/17 [History] Potassium Citrate [Urocit-K] 15 meq PO BID 04/14/17 [History] Albuterol Sulfate [Albuterol Inhaler] 2 puff IH Q4HR PRN #1 hfa.aer.ad 04/17/17 [Rx] Benzonatate [Tessalon] 100 mg PO TID PRN 04/17/17 [History] Guaifenesin [Mucinex] 1,200 mg PO BID #20 tab.er.12h 04/17/17 [Rx] Levofloxacin [Levaquin] 750 mg PO DAILY 04/17/17 [History] Oseltamivir [Tamiflu] 75 mg PO BID 04/17/17 [History] PredniSONE [Deltasone] 20 mg PO DAILY 4 Days tablet 04/17/17 [Rx] 3 Allergy/AdvReac Type Severity Reaction Status Date / Time latex Allergy Rash Verified 04/17/17 06:30 All Systems PM: A 10-system review of systems was performed and is negative for pertinent findings except as documented above in the HPI. - Constitutional Vitals: Temp Pulse Resp BP Pulse Ox 98.0 F 98 16 116/93 93 04/17/17 14:28 04/17/17 14:28 04/17/17 14:28 04/17/17 14:28 04/17/17 14:28 General appearance: Present: mild distress, A&O X 3, answers questions appropriately Exam: Conversational dyspnea - Eye Eye exam: Present: PERRL, conjuntiva pink, sclera anicteric Pupils: Present: PERRL - Respiratory Respiratory exam: Present: prolonged expiratory phase, wheezes. Absent: accessory muscle use, rales, rhonchi - Cardiovascular Cardiovascular exam: Present: RRR, +S1, +S2. Absent: diastolic murmur, gallop, rubs, systolic murmur - GI/Abdominal GI/Abdominal exam: Present: normal bowel sounds, soft, no peritoneal signs. Absent: distended, tenderness - Extremities Exam Extremities exam: Present: warm, radial pulses palpable and symmetrical. Absent : calf tenderness, cyanotic, pedal edema - Skin Skin exam: Present: dry, intact Internal Med - H&P Results - Labs Labs: Per medical record review laboratory data from yesterday: White blood cell count 14, hemoglobin 12.4, platelet count 284, sodium 137, potassium 3.8, BUN 22 , creatinine 0.75 Nasal swab positive for influenza B on 04/14/2017 EKG was personally reviewed reviewed shows normal sinus rhythm 92 bpm, normal EKG.
[2017-04-17] MEDS ORDERED: Ibuprofen 400 MG TABLET PO PRN (15:28)
[2017-04-17] MEDS ORDERED: Acetaminophen 325 MG TABLET PO PRN (15:28)
[2017-04-17] MEDS: levoFLOXacin 750 MG TABLET PO SCH (15:43)
[2017-04-17] MEDS: MethylPREDNISolone 40 MG/ML VIAL IVP SCH (15:58)
[2017-04-17] MEDS: Ipratropium/Albuterol Neb 3 ML IH SCH ×3 (18:29→23:19)
[2017-04-17] MEDS: POTASSIUM CITRATE 15 MEQ PO SCH (21:07)
[2017-04-18] MEDS: MethylPREDNISolone 40 MG/ML VIAL IVP SCH ×4 (00:01→23:41)
[2017-04-18] MEDS: Ipratropium/Albuterol Neb 3 ML IH SCH ×6 (04:10→23:05)
[2017-04-18] MEDS: *HR* Enoxaparin 40 MG/0.4 ML SYRINGE SQ SCH (05:38)
[2017-04-18 06:03] LABS: Basophils % 0.1 %; Hematocrit 45.9 % (37.5-50.1); Immature Granulocytes % 6.5 % (0-4); Lymphocytes # 1.1 K/mcL (0.6-4.6); Lymphocytes % 8.9 %; Mean Corpuscular HGB Conc 31.4 g/dL (31.6-35.5); Mean Corpuscular Hemoglobin 26.3 pg (28.0-33.3); Mean Corpuscular Volume 83.8 fL (83.0-100.0); Mean Platelet Volume 8.8 fL (9.4-12.4); Monocytes # 0.7 K/mcL (0.0-1.3); Platelet Count 382 K/mcL (140-400); Red Blood Count 5.48 M/mcL (4.19-5.50); Red Cell Distribution Width 13.7 % (11.5-14.5); Segmented Neutrophils % 78.5 %
[2017-04-18 06:14] LABS: Hemoglobin 14.4 g/dL (12.9-16.9); Neutrophils # 9.3 K/mcL (1.6-8.9)
[2017-04-18 06:27] LABS: BUN/Creatinine Ratio 25 (6-26); Blood Urea Nitrogen 21 mg/dL (8-23); Calcium 8.8 mg/dL (8.6-10.3); Carbon Dioxide 23 mEq/L (23-29); Chloride 101 mEq/L (98-107); Glucose 179 mg/dL (70-105); Osmolality,Calculated 283 (280-300); Potassium 4.6 mEq/L (3.5-5.1); Sodium 133 mEq/L (136-145); eGFR For African Americans > 60 (> 60); eGFR For Non-African Americans > 60 (> 60)
[2017-04-18 06:47] LABS: Platelet Estimate Normal (Normal)
[2017-04-18] MEDS: levoFLOXacin 750 MG TABLET PO SCH (08:00)
[2017-04-18] MEDS: POTASSIUM CITRATE 15 MEQ PO SCH ×2 (08:15→20:44)
[2017-04-18] MEDS ORDERED: Atropine Sulfate 1% 40 DROP/2 ML BOTTLE RIGHT EYE SCH (09:00)
--- NOTE | 2017-04-18 09:43 | Internal Med Progress Note ---
<Tony Rich - Last Filed: 04/18/17 09:40> Date of Encounter: 04/18/17 Time of Encounter: 09:41 - Assessment and plan (1) Acute exacerbation of chronic obstructive airways disease Current Visit: Yes Status: Acute Assessment and plan: Chest x-ray suggestive of COPD Patient is wheezy on exam Continue with IV steroids, bronchodilators and supplemental oxygen as well as oral Levaquin to treat for possible bronchitis-related infection. (2) Acute respiratory failure with hypoxia Current Visit: Yes Status: Acute Assessment and plan: Likely secondary to COPD exacerbation Patient states he is still not at his baseline We will continue treatment with supplemental oxygen here in the hospital. (3) Influenza B Current Visit: Yes Status: Acute Assessment and plan: Continue with Tamiflu (4) DVT prophylaxis Current Visit: No Status: Acute Assessment and plan: Continue with SQ lovenox - Subjective Interval history: Patient states that he is feeling somewhat better today but is not back to his baseline. States that he was recently discharged from the hospital for influenza. States he is feeling he is not able to go home quite yet. States he has had an occasional cough that is nonproductive. Patient denies any home O2 use. - Constitutional Vitals: Temp Pulse Resp BP Pulse Ox 97.4 F L 93 16 125/85 92 04/18/17 07:20 04/18/17 07:20 04/18/17 08:08 04/18/17 07:20 04/18/17 08:08 General appearance: Present: A&O X 3, answers questions appropriately - Head Head exam: Present: atraumatic, normocephalic - Neck Neck exam general surgery: Present: full ROM, normal inspection, trachea midline - Respiratory Respiratory exam: Present: wheezes (Bilaterally) - Cardiovascular Cardiovascular exam: Present: +S1, +S2, tachycardia - GI/Abdominal GI/Abdominal exam: Present: normal bowel sounds, soft, no peritoneal signs. Absent: distended, tenderness - Extremities Exam Extremities exam: Present: warm. Absent: cyanotic, pedal edema - Neurological Exam Neurological exam: Present: oriented X3, no focal deficits. Absent: facial droop, speech deficit - Psychiatric Psychiatric exam: Present: normal affect, normal mood - Skin Skin exam: Present: dry, intact, warm Internal Medicine: Result - Labs CBC & Chem 7: 04/18/17 05:41 04/18/17 05:41 Labs: Short CBC 04/18/17 Range/Units 05:41 WBC 11.9 H (4.3-11.1) K/mcL Hgb 14.4 D (12.9-16.9) g/dL Hct 45.9 (37.5-50.1) % Plt Count 382 (140-400) K/mcL Neutrophils # 9.3 H (1.6-8.9) K/mcL [facility] 04/18/17 05:41 Sodium 133 L Potassium 4.6 Chloride 101 Carbon Dioxide 23 BUN 21 Creatinine 0.85 Glucose 179 H Calcium 8.8 Consult Discharge Plan - Plan Referrals: Kaiden Wahl DO [Primary Care Provider] - <Kev Nguyen H - Last Filed: 04/18/17 10:24> Date of Encounter: 04/18/17 - Constitutional Vitals: Temp Pulse Resp BP Pulse Ox 97.4 F L 93 16 125/85 92 04/18/17 07:20 04/18/17 07:20 04/18/17 08:08 04/18/17 07:20 04/18/17 08:08 Internal Medicine: Result - Labs CBC & Chem 7: 04/18/17 05:41 04/18/17 05:41 Labs: Short CBC 04/18/17 Range/Units 05:41 WBC 11.9 H (4.3-11.1) K/mcL Hgb 14.4 D (12.9-16.9) g/dL Hct 45.9 (37.5-50.1) % Plt Count 382 (140-400) K/mcL Neutrophils # 9.3 H (1.6-8.9) K/mcL [facility] 04/18/17 05:41 Sodium 133 L Potassium 4.6 Chloride 101 Carbon Dioxide 23 BUN 21 Creatinine 0.85 Glucose 179 H Calcium 8.8 - Attending Attestation Acute hypoxic respiratory failure secondary to acute COPD exacerbation due to influence of being Continue Solu-Medrol, complete doses of Tamiflu Hyponatremia, stable monitor sodium Steroid-induced hyperglycemia, consider using the sliding scale I examined this patient and my medical decision-making was reviewed with the Resident Physician. I agree with the documented findings, disposition and treatment plan as described except to the extent set forth below.
[2017-04-19] MEDS: Ipratropium/Albuterol Neb 3 ML IH SCH ×4 (03:30→16:33)
[2017-04-19 03:57] LABS: Hematocrit 43.9 % (37.5-50.1); Mean Corpuscular HGB Conc 31.9 g/dL (31.6-35.5); Mean Corpuscular Hemoglobin 26.8 pg (28.0-33.3); Mean Corpuscular Volume 84.1 fL (83.0-100.0); Mean Platelet Volume 8.7 fL (9.4-12.4); Platelet Count 437 K/mcL (140-400); Red Blood Count 5.22 M/mcL (4.19-5.50)
[2017-04-19 04:46] LABS: BUN/Creatinine Ratio 28 (6-26); Blood Urea Nitrogen 30 mg/dL (8-23); Calcium 8.7 mg/dL (8.6-10.3); Carbon Dioxide 22 mEq/L (23-29); Chloride 103 mEq/L (98-107); Glucose 174 mg/dL (70-105); Osmolality,Calculated 286 (280-300); Potassium 4.9 mEq/L (3.5-5.1); Sodium 133 mEq/L (136-145); eGFR For African Americans > 60 (> 60); eGFR For Non-African Americans > 60 (> 60)
[2017-04-19 04:52] LABS: Lymphocytes # 0.9 K/mcL (0.6-4.6); Monocytes # 0.9 K/mcL (0.0-1.3); Neutrophils # 13.7 K/mcL (1.6-8.9); Platelet Estimate Increased (Normal); Reactive Lymphocytes Present (Not Present)
[2017-04-19] MEDS: *HR* Enoxaparin 40 MG/0.4 ML SYRINGE SQ SCH (06:03)
[2017-04-19] MEDS: MethylPREDNISolone 40 MG/ML VIAL IVP SCH (09:52)
[2017-04-19] MEDS: levoFLOXacin 750 MG TABLET PO SCH (09:52)
[2017-04-19] MEDS: POTASSIUM CITRATE 15 MEQ PO SCH (09:53)
--- NOTE | 2017-04-19 10:48 | Discharge Summary ---
Date of Encounter: 04/19/17 Time of Encounter: 10:46 - Discharge Diagnosis (1) Acute exacerbation of chronic obstructive airways disease Priority: Primary Status: Acute Comments: Acute hypoxic respiratory failure secondary to acute COPD exacerbation due to influenza B and possible acute bacterial bronchitis (2) Acute respiratory failure with hypoxia Priority: Primary Status: Acute (3) Influenza B Priority: Primary Status: Acute (4) Leukocytosis Priority: Secondary Status: Acute Comments: Exacerbated by steroids Qualifiers: Leukocytosis type: unspecified Qualified Code(s): D72.829 - Elevated white blood cell count, unspecified - Discharge Medications Prescriptions: Ipratropium/Albuterol Neb [Duoneb] 3 ml IH [id number] PRN #30 inhsol PRN Reason: Shortness Of Breath predniSONE [PredniSONE] 10 mg PO DAILY 24 Days tablet Home Medications: Atropine Sulfate in 0.9% NaCl [Atropine 0.01%-Ns Eye Drops] 1 drop RIGHT EYE AD 04/14/17 [History] Potassium Citrate [Urocit-K] 15 meq PO BID 04/14/17 [History] Albuterol Sulfate [Albuterol Inhaler] 2 puff IH Q4HR PRN #1 hfa.aer.ad 04/17/17 [Rx] Benzonatate [Tessalon] 100 mg PO TID PRN 04/17/17 [History] Guaifenesin [Mucinex] 1,200 mg PO BID #20 tab.er.12h 04/17/17 [Rx] Levofloxacin [Levaquin] 750 mg PO DAILY 04/17/17 [History] Ipratropium/Albuterol Neb [Duoneb] 3 ml IH [id number] PRN #30 inhsol 04/19/17 [Rx] predniSONE [PredniSONE] 10 mg PO DAILY 24 Days tablet 04/19/17 [Rx] Allergies/Adverse Reactions: 3 Allergy/AdvReac Type Severity Reaction Status Date / Time latex Allergy Rash Verified 04/17/17 06:30 Date of admission: 04/17/17 16:11 Primary care physician: Kaiden Carbajal - Patient Status Disposition: Home, Self-Care Condition: Good Overall status at discharge: patient is progressing back to baseline - Discharge Instructions Instructions: Chronic Obstructive Pulmonary Disease (DC) Follow Up With: Kaiden Wahl DO [Primary Care Provider] - Additional Instructions: Follow-up with primary care physician within the next 7 days. Pulmonary function test within the next 4-6 weeks, complete 4 more doses of Levaquin. Prednisone taper as follows: 60 mg daily for 4 days, 50 mg for 4 days, 40 mg for 4 days, 30 mg for 4 days, 20 mg for 4 days, 10 mg for 4 days. - Diet and Activity Activity: increase activity as tolerated Diet: low fat, low cholesterol Hospital course: Mr. Wesley is a 62 year old male with reported history of COPD not oxygen dependent, former smoker, who presented to the hospital for shortness of breath. He was admitted to our service and discharged the day before his recent admission after being treated for COPD exacerbation and influenza B. Since arriving home he felt progressively more short of breath, he was severely short of breath, worse with ambulating to the bathroom, better with rest, reported associated cough ,productive of green sputum, denies associated chest pain, denies fever. At the time he was picked up by EMS his oxygen saturation was 87% on room air. He does not have home oxygen. In the emergency department oxygen saturation was 88% with supplemental oxygen by nasal cannula at 2 L/m. He required multiple breathing treatments which improved his symptoms but remained severely symptomatic and therefore was referred for admission. The patient was continued on Solu-Medrol, Levaquin and completed 5 days of Tamiflu. He feels much better and has not required oxygen. Stable to be discharged home, she was given the option to stay an additional day but prefers to continue his plan of care at home. - Time Spent with Patient Total time spent providing and/or coordinating discharge services: Greater than 30 minutes (40 min) - Constitutional Vitals: Temp Pulse Resp BP Pulse Ox 97.8 F 88 16 130/85 95 04/19/17 07:12 04/19/17 07:12 04/19/17 08:18 04/19/17 07:12 04/19/17 10:04 General appearance: Present: A&O X 3, answers questions appropriately - Head Head exam: Present: atraumatic, normocephalic - Eye Eye exam: Present: PERRL, conjuntiva pink, sclera anicteric Pupils: Present: PERRL - Neck Neck exam general surgery: Present: supple, trachea midline. Absent: lymphadenopathy - Respiratory Respiratory exam: Present: CTAB. Absent: accessory muscle use, rales, rhonchi, wheezes - Cardiovascular Cardiovascular exam: Present: RRR, +S1, +S2. Absent: diastolic murmur, gallop, rubs, systolic murmur - GI/Abdominal GI/Abdominal exam: Present: normal bowel sounds, soft, no peritoneal signs. Absent: distended, tenderness - Extremities Exam Extremities exam: Present: warm, radial pulses palpable and symmetrical. Absent : calf tenderness, cyanotic, pedal edema - Neurological Exam Neurological exam: Present: CN II-XII intact, oriented X3, no focal deficits. Absent: pronater drift, facial droop, speech deficit - Skin Skin exam: Present: dry, intact
[2017-04-19 15:26] VITALS: BP 128/89
== END 2017-04-19 17:46 | disposition home or self-care (01) | DRG 190 ==
LOC: 2NENU 06:26 → EMEROO 06:26 → 2NENU 14:05
PROVIDERS: ADMIT Internal Medicine; ATTEND Internal Medicine

== ENCOUNTER 2020-10-24 09:13 | Inpatient (IN) ==
[2020-10-24] MEDS ORDERED: 0.9 % Sodium Chloride 1,000 ML IVC ONE (10:16)
[2020-10-24] MEDS ORDERED: Isovue-370 500 ML BOTTLE IVP ONE (10:16)
[2020-10-24] MEDS ORDERED: *HR* FentaNYL (PF) 100 MCG/2 ML VIAL IVP ONE (10:16)
[2020-10-24] MEDS ORDERED: Piperacillin/Tazobactam 3.375 GM in 0.9 % Sodium Chloride Mini Bag 100 ML IVPB ONE (10:55)
[2020-10-24] MEDS ORDERED: Vancomycin 1,250 MG/262.5 ML IV.SOLN IVPB ONE (10:55)
[2020-10-24 11:15] LABS: Basophils % 0.3 %; Eosinophils # 0.1 K/mcL (0.0-0.6); Eosinophils % 0.3 %; Hematocrit 41.9 % (37.5-50.1); Immature Granulocytes % 0.6 % (0-4); Lymphocytes # 1.2 K/mcL (0.6-4.6); Lymphocytes % 7.3 %; Mean Corpuscular HGB Conc 32.5 g/dL (31.6-35.5); Mean Corpuscular Hemoglobin 27.5 pg (28.0-33.3); Mean Corpuscular Volume 84.8 fL (83.0-100.0); Mean Platelet Volume 8.9 fL (9.4-12.4); Monocytes # 1.5 K/mcL (0.0-1.3); Monocytes % 9.3 %; Platelet Count 312 K/mcL (140-400); Red Blood Count 4.94 M/mcL (4.19-5.50); Red Cell Distribution Width 14.5 % (11.5-14.5); Segmented Neutrophils % 82.2 %; White Blood Count 15.8 K/mcL (4.3-11.1)
[2020-10-24 11:17] LABS: Hemoglobin 13.6 g/dL (12.9-16.9)
[2020-10-24 12:09] LABS: BUN/Creatinine Ratio 17 (6-26); Blood Urea Nitrogen 15 mg/dL (8-23); C-Reactive Protein 204 mg/L (Less than 10); Calcium 9.2 mg/dL (8.6-10.3); Carbon Dioxide 22 mEq/L (23-29); Chloride 102 mEq/L (98-107); Glucose 106 mg/dL (70-105); Osmolality,Calculated 275 (280-300); Potassium 4.2 mEq/L (3.5-5.1); Sodium 132 mEq/L (136-145); eGFR For African Americans > 60 (> 60); eGFR For Non-African Americans > 60 (> 60)
[2020-10-24] MEDS ORDERED: Acetaminophen 325 MG TABLET PO PRN ×2 (13:46→18:16)
[2020-10-24] MEDS ORDERED: Ondansetron 4 MG/2 ML VIAL IVP PRN ×4 (13:46→18:16)
[2020-10-24] MEDS ORDERED: Naloxone 0.4 MG/ML INJ IVP PRN ×2 (13:46→18:16)
[2020-10-24] MEDS ORDERED: Ipratropium/Albuterol Neb 3 ML IH PRN ×2 (13:48→18:16)
[2020-10-24] MEDS ORDERED: 0.9 % Sodium Chloride 1,000 ML IVC SCH (14:00)
[2020-10-24] MEDS ORDERED: *HR* Propofol 200 MG/20 ML VIAL IVP ONE (15:45)
[2020-10-24] MEDS ORDERED: *HR* FentaNYL (PF) 100 MCG/2 ML VIAL ONE ×2 (15:45→17:05)
[2020-10-24] MEDS ORDERED: *HR* Midazolam HCl 2 MG/2 ML VIAL ONE (15:45)
[2020-10-24] MEDS ORDERED: Lidocaine -MPF 2% 2 ML VIAL ONE (15:46)
[2020-10-24] MEDS ORDERED: Lidocaine HCL 4 ML Topical Solution (Laryng-O-Jet Kit Sterile Pak) TP ONE (15:46)
[2020-10-24] MEDS ORDERED: Ondansetron 4 MG/2 ML VIAL ONE (15:46)
[2020-10-24] MEDS ORDERED: *HR* Succinylcholine 200 MG/10 ML VIAL IVP ONE (15:46)
[2020-10-24] MEDS ORDERED: *HR* HYDROmorphone PF 0.5 MG/0.5 ML SYRINGE IVP PRN ×2 (16:21→18:16)
[2020-10-24 16:24] LABS: Influenza A PCR Negative (Negative); Influenza B PCR Negative (Negative); Resp. Syncytial Virus PCR Negative (Negative)
[2020-10-24 16:28] LABS: SARS-CoV-2 by PCR (In House) Negative (Negative)
[2020-10-24] MEDS: Vancomycin 1,250 MG/262.5 ML IV.SOLN IVPB SCH ×2 (20:47→20:48)
[2020-10-24] MEDS ORDERED: Potassium Citrate 10 MEQ TABLET.ER PO SCH (21:00)
[2020-10-24] MEDS: 0.9 % Sodium Chloride 1,000 ML IVC SCH (21:01)
[2020-10-24] MEDS: Potassium Citrate 10 MEQ TABLET.ER PO SCH ×2 (21:01→21:04)
[2020-10-24] MEDS: Budesonide/Formoterol 160/4.5 1 PUFF INH IH SCH (21:36)
[2020-10-24] MEDS ORDERED: Budesonide/Formoterol 160/4.5 1 PUFF INH IH SCH (22:00)
[2020-10-24] MEDS: Piperacillin/Tazobactam 3.375 GM in 0.9 % Sodium Chloride Mini Bag 100 ML IVPB SCH (23:02)
[2020-10-25] MEDS ORDERED: Piperacillin/Tazobactam 3.375 GM in 0.9 % Sodium Chloride Mini Bag 100 ML IVPB SCH
[2020-10-25] MEDS ORDERED: Vancomycin 1,250 MG/262.5 ML IV.SOLN IVPB SCH (01:00)
[2020-10-25] MEDS: Vancomycin 1,250 MG/262.5 ML IV.SOLN IVPB SCH ×2 (02:34→13:30)
[2020-10-25] MEDS ORDERED: *HR* Enoxaparin 40 MG/0.4 ML SYRINGE SQ SCH (07:00)
[2020-10-25] MEDS: Piperacillin/Tazobactam 3.375 GM in 0.9 % Sodium Chloride Mini Bag 100 ML IVPB SCH ×2 (07:47→16:25)
[2020-10-25] MEDS: *HR* Enoxaparin 40 MG/0.4 ML SYRINGE SQ SCH (07:47)
[2020-10-25] MEDS: amLODIPine 5 MG TABLET PO SCH (07:47)
[2020-10-25 07:51] LABS: Hematocrit 39.2 % (37.5-50.1); Hemoglobin 12.4 g/dL (12.9-16.9); Mean Corpuscular HGB Conc 31.6 g/dL (31.6-35.5); Mean Corpuscular Hemoglobin 27.1 pg (28.0-33.3); Mean Corpuscular Volume 85.6 fL (83.0-100.0); Mean Platelet Volume 9.1 fL (9.4-12.4); Platelet Count 326 K/mcL (140-400); Red Blood Count 4.58 M/mcL (4.19-5.50); Red Cell Distribution Width 14.3 % (11.5-14.5); White Blood Count 13.2 K/mcL (4.3-11.1)
[2020-10-25 07:59] LABS: BUN/Creatinine Ratio 19 (6-26); Blood Urea Nitrogen 15 mg/dL (8-23); Calcium 8.5 mg/dL (8.6-10.3); Carbon Dioxide 23 mEq/L (23-29); Chloride 103 mEq/L (98-107); Glucose 126 mg/dL (70-105); Magnesium 2.1 mg/dL (1.6-2.6); Osmolality,Calculated 278 (280-300); Potassium 4.4 mEq/L (3.5-5.1); Sodium 133 mEq/L (136-145); eGFR For African Americans > 60 (> 60); eGFR For Non-African Americans > 60 (> 60)
[2020-10-25] MEDS: Budesonide/Formoterol 160/4.5 1 PUFF INH IH SCH ×2 (08:26→22:29)
[2020-10-25] MEDS: Potassium Citrate 10 MEQ TABLET.ER PO SCH ×2 (08:30→22:08)
[2020-10-25] MEDS ORDERED: amLODIPine 5 MG TABLET PO SCH (09:00)
[2020-10-25] MEDS: 0.9 % Sodium Chloride 1,000 ML IVC SCH (13:30)
[2020-10-26] MEDS: Piperacillin/Tazobactam 3.375 GM in 0.9 % Sodium Chloride Mini Bag 100 ML IVPB SCH ×2 (00:16→08:33)
[2020-10-26 01:11] LABS: Hematocrit 37.4 % (37.5-50.1); Hemoglobin 11.9 g/dL (12.9-16.9); Mean Corpuscular HGB Conc 31.8 g/dL (31.6-35.5); Mean Corpuscular Hemoglobin 27.4 pg (28.0-33.3); Mean Platelet Volume 8.7 fL (9.4-12.4); Platelet Count 310 K/mcL (140-400); Red Blood Count 4.35 M/mcL (4.19-5.50); Red Cell Distribution Width 14.3 % (11.5-14.5); White Blood Count 10.7 K/mcL (4.3-11.1)
[2020-10-26 01:32] LABS: BUN/Creatinine Ratio 20 (6-26); Blood Urea Nitrogen 20 mg/dL (8-23); Calcium 8.3 mg/dL (8.6-10.3); Carbon Dioxide 22 mEq/L (23-29); Chloride 106 mEq/L (98-107); Glucose 110 mg/dL (70-105); Osmolality,Calculated 283 (280-300); Sodium 135 mEq/L (136-145); eGFR For African Americans > 60 (> 60); eGFR For Non-African Americans > 60 (> 60)
[2020-10-26] MEDS ORDERED: Vancomycin 1,500 MG/265 ML IV.SOLN IVPB SCH (02:00)
[2020-10-26] MEDS: *HR* Enoxaparin 40 MG/0.4 ML SYRINGE SQ SCH (06:05)
[2020-10-26] MEDS: amLODIPine 5 MG TABLET PO SCH (08:33)
[2020-10-26] MEDS: Potassium Citrate 10 MEQ TABLET.ER PO SCH (08:33)
[2020-10-26] MEDS: Budesonide/Formoterol 160/4.5 1 PUFF INH IH SCH (10:58)
[2020-10-26 11:10] VITALS: BP 138/78; PULSE 78; TEMP 97.6; O2SAT 95
[2020-10-26] MEDS ORDERED: Doxycycline 100 MG CAPSULE PO SCH (21:00)
== END 2020-10-26 17:41 | disposition home or self-care (01) | DRG 854 ==
LOC: EMEROOARM 09:13 → CDU 09:13 → 2ANU 10-25 04:58
PROVIDERS: ADMIT Internal Medicine; ATTEND Internal Medicine